=== PATIENT | male | born 1995 | race African-American/Black ===

== ENCOUNTER 2016-12-10 05:00 | Inpatient (IN) | payer OTHER ==
[~2016-12-10] VITALS: Ht 160 cm; Wt 79.0 kg
[2016-12-10 07:04] LABS: EOSINOPHIL (%) 0.2 % (0-5); HEMATOCRIT 49.2 % (38.0-50.0); IMMATURE GRANULOCYTE (%) 0.7 % (0.0-0.7); IMMATURE GRANULOCYTE COUNT 0.1 K/uL; INSTRUMENT ABS NEUTROPHIL CT 8.9 K/uL; LYMPHOCYTE COUNT 1.7 K/uL (1.0-2.8); MCH 30.7 PG (29.0-34.0); MCHC 34.6 G/DL (30.0-36.0); MCV 88.8 FL (86-99); MEAN PLAT.VOLUME 10.6 uM^3 (9.0-12.4); MONOCYTE (%) 5.4 % (3-12); MONOCYTE COUNT 0.6 K/uL (0-0.8); NEUTROPHIL (%) 78.3 % (45-76); NEUTROPHIL COUNT 8.9 K/uL (1.8-6.4); PLATELET COUNT 248 K/uL (156-360); RBC DIS.WIDTH-CV 11.9 % (11.8-14.6); RBC DIS.WIDTH-SD 39.1 % (39-53); RED BLOOD COUNT 5.54 M/uL (4.00-5.50); WHITE BLOOD COUNT 11.3 K/uL (4.1-10.2)
[2016-12-10 07:39] LABS: ANION GAP 14 MEQ/L (2-14); CHLORIDE 103 MEQ/L (99-109); POTASSIUM 3.5 MEQ/L (3.7-5.4); SAMPLE HEMOLYSIS CHECK 0; SAMPLE ICTERIC CHECK 0; SAMPLE LIPEMIA CHECK 0; SODIUM 140 MEQ/L (136-147)
[2016-12-10 07:45] LABS: GFR ESTIMATE (CALCULATED) > 59 mL/min/; GLUCOSE 119 mg/dL (70-99); SERUM ETHYL ALCOHOL < 10 mg/dL; UREA NITROGEN (BUN) 16 mg/dL (9-23)
[2016-12-10 10:55] LABS: BILIRUBIN NEGATIVE; BLOOD NEGATIVE; COLOR YELLOW ((YELLOW)); GLUCOSE (STRIP) NEGATIVE; KETONES 20; LEUKOCYTES NEGATIVE; NITRITE NEGATIVE; PROTEIN (STRIP) NEGATIVE; SPECIFIC GRAVITY 1.009 (1.000-1.030); UROBILINOGEN 0.2 MG/DL (0.2-1.0)
[2016-12-10 10:56] LABS: ADD MIUA? NO
[2016-12-10 11:06] LABS: ADD MEDTOX COMMENT Y; AMPHETAMINE NEGATIVE (500 ng/mL); BARBITURATES NEGATIVE (200 ng/mL); BENZODIAZEPINES NEGATIVE (150 ng/mL); COCAINE NEGATIVE (150 ng/mL); INTERNAL CONTROLS VALID? YES; METHADONE NEGATIVE (200 ng/mL); METHAMPHETAMINE NEGATIVE (500 ng/mL); OPIATES (MORPHINE) NEGATIVE (100 ng/mL); OXYCODONE NEGATIVE (100 ng/mL); PHENCYCLIDINE NEGATIVE (25 ng/mL); PROPOXYPHENE NEGATIVE (300 ng/mL); THC CANNABINOIDS PRESUMPTIVE POSITIVE (50 ng/mL); TRICYCLIC ANTIDEPRESSANTS NEGATIVE (300 ng/mL)
[2016-12-10 13:46] VITALS: BP 144/90
[2016-12-10 13:49] VITALS: BP 144/90
[2016-12-10 15:29] VITALS: BP 126/58
[2016-12-11 07:42] VITALS: BP 102/57
[2016-12-11 15:31] VITALS: BP 142/66
[2016-12-11 17:48] VITALS: BP 138/65
[2016-12-12 07:49] VITALS: BP 126/59
[2016-12-12 15:54] VITALS: BP 137/64
[2016-12-13 07:57] VITALS: BP 131/56
[2016-12-13 15:33] VITALS: BP 153/71
[2016-12-14 07:53] VITALS: BP 172/94
[2016-12-14] MEDS ORDERED: DIVALPROEX SOD250 M1 PO (09:26)
[2016-12-14] MEDS ORDERED: RISPERDAL3 MG PO (09:26)
[2016-12-14] MEDS ORDERED: BENZTROPINE MESY1 MG PO ×2 (09:27→09:31)
== END 2016-12-14 11:11 | disposition home or self-care (01) | DRG 885 ==
LOC: EME 05:00 → EDOF 11:13 → 1WEST 11:13
PROVIDERS: Emergency Medicine
DX: F25.0 Schizoaffective disorder, bipolar type (principal); F12.10 Cannabis abuse, uncomplicated; F10.10 Alcohol abuse, uncomplicated; F17.200 Nicotine dependence, unspecified, uncomplicated
CPT/HCPCS: 80048; 81003; 84999; 85025; 90837; 97150 GO; 97166 GO; 99281; 99285; G0480; J1200

== ENCOUNTER 2017-01-25 17:55 | Emergency (ER) | payer OTHER ==
[~2017-01-25] VITALS: Ht 160 cm; Wt 80.7 kg
[~2017-01-25 17:55] MED LIST: BENZTROPINE MESY1 MG PO; DIVALPROEX SOD250 M1 PO; RISPERDAL3 MG PO
[2017-01-25 19:31] LABS: EOSINOPHIL (%) 0.1 % (0-5); IMMATURE GRANULOCYTE (%) 0.3 % (0.0-0.7); INSTRUMENT ABS NEUTROPHIL CT 7.3 K/uL; LYMPHOCYTE COUNT 1.4 K/uL (1.0-2.8); MCH 31.4 PG (29.0-34.0); MCHC 34.7 G/DL (30.0-36.0); MCV 90.6 FL (86-99); MEAN PLAT.VOLUME 10.5 uM^3 (9.0-12.4); MONOCYTE COUNT 0.5 K/uL (0-0.8); NEUTROPHIL (%) 78.7 % (45-76); NEUTROPHIL COUNT 7.3 K/uL (1.8-6.4); PLATELET COUNT 215 K/uL (156-360); RBC DIS.WIDTH-CV 11.9 % (11.8-14.6); RBC DIS.WIDTH-SD 39.5 % (39-53); RED BLOOD COUNT 5.19 M/uL (4.00-5.50); WHITE BLOOD COUNT 9.3 K/uL (4.1-10.2)
[2017-01-25 19:40] LABS: CHLORIDE 105 mEq/L (99-109); POTASSIUM 3.4 mEq/L (3.7-5.4); SODIUM 138 mEq/L (136-147)
[2017-01-25 19:42] LABS: GLUCOSE 103 mg/dL (70-99)
[2017-01-25 19:43] LABS: ANION GAP 11 MEQ/L (2-14)
[2017-01-25 19:45] LABS: SERUM ETHYL ALCOHOL < 10 mg/dL
[2017-01-25 19:46] LABS: GFR ESTIMATE (CALCULATED) > 59 mL/min/
[2017-01-25 19:47] LABS: UREA NITROGEN (BUN) 12 mg/dL (9-23)
[2017-01-26 07:03] VITALS: BP 115/79
== END 2017-01-26 07:10 | disposition home or self-care (01) ==
LOC: EME 17:55
PROVIDERS: Emergency Medicine
DX: F31.9 Bipolar disorder, unspecified (principal); F25.0 Schizoaffective disorder, bipolar type; F12.99 Cannabis use, unspecified with unspecified cannabis-induced disorder; F10.99 Alcohol use, unspecified with unspecified alcohol-induced disorder; F17.200 Nicotine dependence, unspecified, uncomplicated
CPT/HCPCS: 80048; 85025; 90837; 99281; 99285; G0480; J1200; J1630; J2060

== ENCOUNTER 2017-01-27 16:03 | Emergency (ER) | payer OTHER ==
[~2017-01-27] VITALS: Ht 160 cm; Wt 80.8 kg
[2017-01-27 17:03] LABS: EOSINOPHIL (%) 0.1 % (0-5); HEMATOCRIT 48.7 % (38.0-50.0); IMMATURE GRANULOCYTE (%) 0.6 % (0.0-0.7); IMMATURE GRANULOCYTE COUNT 0.1 K/uL; INSTRUMENT ABS NEUTROPHIL CT 13.8 K/uL; LYMPHOCYTE COUNT 1.4 K/uL (1.0-2.8); MCH 31.4 PG (29.0-34.0); MCHC 34.9 G/DL (30.0-36.0); MCV 89.9 FL (86-99); MEAN PLAT.VOLUME 10.2 uM^3 (9.0-12.4); MONOCYTE (%) 2.8 % (3-12); MONOCYTE COUNT 0.4 K/uL (0-0.8); NEUTROPHIL (%) 87.4 % (45-76); NEUTROPHIL COUNT 13.8 K/uL (1.8-6.4); PLATELET COUNT 231 K/uL (156-360); RBC DIS.WIDTH-CV 11.8 % (11.8-14.6); RBC DIS.WIDTH-SD 38.4 % (39-53); RED BLOOD COUNT 5.42 M/uL (4.00-5.50); WHITE BLOOD COUNT 15.8 K/uL (4.1-10.2)
[2017-01-27 17:11] LABS: CHLORIDE 104 mEq/L (99-109); POTASSIUM 3.8 mEq/L (3.7-5.4); SODIUM 138 mEq/L (136-147)
[2017-01-27 17:13] LABS: GLUCOSE 91 mg/dL (70-99)
[2017-01-27 17:14] LABS: ANION GAP 12 MEQ/L (2-14)
[2017-01-27 17:16] LABS: GFR ESTIMATE (CALCULATED) > 59 mL/min/; SERUM ETHYL ALCOHOL < 10 mg/dL
[2017-01-27 17:18] LABS: UREA NITROGEN (BUN) 15 mg/dL (9-23)
[2017-01-27 17:20] LABS: SALICYLATE < 5.0 MG/DL (15-30)
[2017-01-27 18:07] LABS: AMPHETAMINE NEGATIVE (500 ng/mL); BARBITURATES NEGATIVE (200 ng/mL); BENZODIAZEPINES NEGATIVE (150 ng/mL); COCAINE NEGATIVE (150 ng/mL); METHADONE NEGATIVE (200 ng/mL); METHAMPHETAMINE NEGATIVE (500 ng/mL); OPIATES (MORPHINE) NEGATIVE (100 ng/mL); OXYCODONE NEGATIVE (100 ng/mL); PHENCYCLIDINE NEGATIVE (25 ng/mL); PROPOXYPHENE NEGATIVE (300 ng/mL); THC CANNABINOIDS PRESUMPTIVE POSITIVE (50 ng/mL); TRICYCLIC ANTIDEPRESSANTS NEGATIVE (300 ng/mL)
[2017-01-27 18:08] LABS: ADD MEDTOX COMMENT Y; INTERNAL CONTROLS VALID? YES
[2017-01-27 19:12] VITALS: BP 156/92
== END 2017-01-27 19:14 | disposition home or self-care (01) ==
LOC: EME 16:03
PROVIDERS: Emergency Medicine
DX: F31.9 Bipolar disorder, unspecified (principal); F25.0 Schizoaffective disorder, bipolar type; M62.838 Other muscle spasm; R45.1 Restlessness and agitation; R45.4 Irritability and anger; Z91.14 Patient's other noncompliance with medication regimen; F17.200 Nicotine dependence, unspecified, uncomplicated
CPT/HCPCS: 80048; 84999; 85025; 90839; 99281; 99283; G0480

== ENCOUNTER 2017-04-05 18:44 | Emergency (ER) | payer OTHER ==
[~2017-04-05] VITALS: Ht 160 cm; Wt 76.0 kg
[2017-04-05 18:55] VITALS: BP 154/93
== END 2017-04-05 19:06 | disposition left against medical advice (07) ==
LOC: EME 18:44
DX: F99 Mental disorder, not otherwise specified (principal); Z53.21 Procedure and treatment not carried out due to patient leaving prior to being seen by health care provider